=== PATIENT | female | born 1970 | race Hispanic/Latino ===

== ENCOUNTER 2017-05-03 13:13 | Emergency (ER) | payer SELFPAY | END 2017-05-03 14:20 | disposition left against medical advice (07) | LOC: ED 13:13 | DX: M54.9 Dorsalgia, unspecified (principal); Z53.21 Procedure and treatment not carried out due to patient leaving prior to being seen by health care provider ==

== ENCOUNTER 2017-07-06 15:16 | Emergency (ER) | payer SELFPAY ==
[2017-07-06 15:44] LABS: Basophils % (Auto) 0.2 % (0.0-1.8); Eosinophils % (Auto) 0.3 % (0.0-4.3); Hematocrit 42.2 % (30.3-42.9); Mean Corpuscular HGB Conc 36 % (30-34); Mean Corpuscular Hemoglobin 31 pg (28-32); Mean Corpuscular Volume 87 fl (79-97); Platelet Count 189 K/mm3 (140-440); Red Blood Count 4.85 M/mm3 (3.65-5.03); Red Cell Distribution Width 12.7 % (13.2-15.2); White Blood Count 8.7 K/mm3 (4.5-11.0)
[2017-07-06 16:05] LABS: Alanine Aminotransferase 10 units/L (7-56); Albumin 4.9 g/dL (3.9-5); Albumin/Globulin Ratio 1.5 %; Alkaline Phosphatase 111 units/L (35-129); Anion Gap 21 mmol/L; Blood Urea Nitrogen 14 mg/dL (7-17); Calcium 9.3 mg/dL (8.4-10.2); Carbon Dioxide 23 mmol/L (22-30); Chloride 101.4 mmol/L (98-107); Glucose 122 mg/dL (65-100); Lipase 28 units/L (13-60); Potassium 3.7 mmol/L (3.6-5.0); Sodium 142 mmol/L (137-145); Total Protein 8.2 g/dL (6.3-8.2)
[2017-07-06 17:39] LABS: Bilirubin,Urine NEG (Negative); Blood,Urine SM (Negative); Ketones,Urine NEG (Negative); Leukocyte Esterase,Urine NEG (Negative); Mucus,Urine 1+ /HPF; Nitrite,Urine NEG (Negative); Protein,Urine <15 mg/dL mg/dL (Negative); Urobilinogen,Urine < 2.0 mg/dL (<2.0)
[2017-07-06] MEDS ORDERED: PEPCID IV ONE (23:48)
[2017-07-06] MEDS ORDERED: ATIVAN IV ONE (23:48)
[2017-07-06] MEDS ORDERED: BENTYL IM ONE (23:48)
[2017-07-06] MEDS ORDERED: NACL 0.9% 1000 ML 1,000 ML IV ONE (23:48)
[2017-07-06] MEDS ORDERED: ALUM-MAG HYDROX-SIMETH 200-200-20MG/5ML PO ONE (23:48)
--- NOTE | 2017-07-06 23:49 | Emergency Department Report ---
ED General Adult HPI - General Chief complaint: Abdominal Pain Stated complaint: RIGHT FLANK PAIN Time Seen by Provider: 07/06/17 22:14 Source: patient, RN notes reviewed, old records reviewed Mode of arrival: Ambulatory Limitations: No Limitations - History of Present Illness Initial comments: This is a 47-year-old female. The patient is previously unknown to me. The patient does not currently have a primary care doctor, and endorses a history of cirrhosis. Patient presents to the ER with a complaint of right flank and right upper quadrant abdominal pain, that radiates to the back. The patient also describes abdominal pressure, bloating, "gas for 2 weeks", and decreased energy for 2 days. She denies irritative and obstructive urinary symptoms. She denies chest pain or shortness of breath. She also complains of headache for 2 months. The headache is not sudden or thunderclap in nature. It is not the worst headache of her life, and it has not reached maximal intensity within an hour. There is no leg pain. There is no leg swelling. No recent trips greater than 4 hours. No recent hospitalizations. The patient also endorses that she recently stepped on animal feces accidentally , and she is worried about "worms." As far she knows, her stools have not demonstrated any parasites. -: Gradual, week(s), month(s) Location: head, back, abdomen Quality: aching Consistency: intermittent Improves with: rest Worsens with: movement Associated Symptoms: loss of appetite, malaise, weakness. denies: confusion, chest pain, cough, diaphoresis - Related Data Previous Rx's Medication Instructions Recorded Last Taken Type Dicyclomine [Bentyl] 10 mg PO QID PRN #20 capsule 07/07/17 Unknown Rx Famotidine [Pepcid] 20 mg PO QDAY #30 tablet 07/07/17 Unknown Rx Ondansetron [Zofran Odt] 4 mg PO QID PRN #20 tab.rapdis 07/07/17 Unknown Rx Allergies Allergy/AdvReac Type Severity Reaction Status Date / Time tramadol HCl [From Ultram] Allergy Itching Verified 03/14/16 10:12 ED Review of Systems ROS: Stated complaint: RIGHT FLANK PAIN Other details as noted in HPI Constitutional: fever Eyes: denies: vision change ENT: denies: epistaxis Respiratory: denies: cough Cardiovascular: denies: chest pain Gastrointestinal: abdominal pain Genitourinary: denies: dysuria Musculoskeletal: back pain Skin: denies: lesions Neurological: weakness Psychiatric: anxiety ED Past Medical Hx - Past Medical History Previous Medical History?: Yes Additional medical history: hypoglycemia - Surgical History Past Surgical History?: Yes Hx Breast Surgery: Yes (tumor removed from left breast) Additional Surgical History: right hand surgery x 3. hysterectomy - Social History Smoking Status: Current Every Day Smoker - Medications Home Medications: Home Medications Medication Instructions Recorded Confirmed Last Taken Type Dicyclomine [Bentyl] 10 mg PO QID PRN #20 capsule 07/07/17 Unknown Rx Famotidine [Pepcid] 20 mg PO QDAY #30 tablet 07/07/17 Unknown Rx Ondansetron [Zofran Odt] 4 mg PO QID PRN #20 tab.rapdis 07/07/17 Unknown Rx ED Physical Exam - General Limitations: No Limitations General appearance: alert, anxious - Head Head exam: Present: atraumatic, normocephalic - Eye Eye exam: Present: normal appearance, PERRL, EOMI, other (visual acuity intact to finger counting, color perception, reading at a close distance). Absent: nystagmus - ENT ENT exam: Present: normal exam, normal orophraynx, mucous membranes moist, normal external ear exam - Neck Neck exam: Present: normal inspection, full ROM. Absent: tenderness, meningismus - Respiratory Respiratory exam: Present: normal lung sounds bilaterally. Absent: respiratory distress, wheezes, rales, rhonchi, stridor, chest wall tenderness, accessory muscle use, decreased breath sounds, prolonged expiratory - Cardiovascular Cardiovascular Exam: Present: regular rate, normal rhythm, normal heart sounds. Absent: bradycardia, tachycardia, irregular rhythm, systolic murmur, diastolic murmur, rubs, gallop - GI/Abdominal GI/Abdominal exam: Present: soft, tenderness (there is right flank tenderness, there is right upper quadrant tenderness. There is no rebound, guarding or peritoneal signs), normal bowel sounds. Absent: distended, guarding, rebound, rigid, pulsatile mass - Extremities Exam Extremities exam: Present: normal inspection, full ROM, normal capillary refill. Absent: tenderness, pedal edema, joint swelling, calf tenderness - Back Exam Back exam: Present: normal inspection, full ROM. Absent: tenderness, CVA tenderness (R), CVA tenderness (L), muscle spasm, paraspinal tenderness, vertebral tenderness - Neurological Exam Neurological exam: Present: alert, oriented X3, normal gait, other (Extraocular movements intact. Tongue midline. No facial droop. Facial sensation intact to light touch in the V1, V2, V3 distribution bilaterally. 5 and 5 strength in 4 extremities.. Sensation is intact to light touch in 4 extremities.). Absent : motor sensory deficit - Psychiatric Psychiatric exam: Present: anxious - Skin Skin exam: Present: warm, dry, intact, normal color. Absent: rash ED Course Vital Signs 07/06/17 07/06/17 07/06/17 15:23 20:41 20:50 Temperature 99.1 F Pulse Rate 116 H 100 H 100 H Respiratory 18 13 11 L Rate Blood Pressure 149/109 126/81 Blood Pressure [Right] O2 Sat by Pulse 99 100 99 Oximetry 07/06/17 07/06/17 07/06/17 21:00 21:10 21:20 Temperature Pulse Rate 84 108 H 109 H Respiratory 13 13 12 Rate Blood Pressure 126/81 126/81 145/84 Blood Pressure [Right] O2 Sat by Pulse 99 97 100 Oximetry 07/06/17 07/06/17 07/06/17 21:30 21:42 21:50 Temperature Pulse Rate 83 86 93 H Respiratory 13 16 12 Rate Blood Pressure 150/87 150/87 149/89 Blood Pressure [Right] O2 Sat by Pulse 100 98 100 Oximetry 07/06/17 07/06/17 07/06/17 22:00 22:10 22:20 Temperature Pulse Rate 90 96 H 87 Respiratory 9 L 11 L 19 Rate Blood Pressure 149/89 156/81 150/87 Blood Pressure [Right] O2 Sat by Pulse 99 99 91 Oximetry 07/06/17 07/06/17 07/06/17 22:30 22:40 22:50 Temperature Pulse Rate 94 H Respiratory 10 L Rate Blood Pressure 150/87 150/87 150/87 Blood Pressure [Right] O2 Sat by Pulse 100 98 98 Oximetry 07/06/17 07/06/17 07/06/17 23:00 23:10 23:20 Temperature Pulse Rate Respiratory Rate Blood Pressure 150/87 101/64 101/64 Blood Pressure [Right] O2 Sat by Pulse 98 96 98 Oximetry 07/06/17 07/06/1717 23:32 23:42 00:06 Temperature Pulse Rate Respiratory Rate Blood Pressure 101/64 101/64 101/64 Blood Pressure [Right] O2 Sat by Pulse 90 91 Oximetry 07/07/17 07/07/17 07/07/17 00:12 00:20 00:30 Temperature Pulse Rate 83 93 H 115 H Respiratory 14 14 16 Rate Blood Pressure 117/76 118/61 118/61 Blood Pressure [Right] O2 Sat by Pulse 97 98 98 Oximetry 07/07/17 07/07/17 07/07/17 00:40 00:50 00:57 Temperature Pulse Rate 99 H 92 H Respiratory 18 16 Rate Blood Pressure 66/30 118/69 Blood Pressure 118/69 [Right] O2 Sat by Pulse 94 Oximetry 07/07/17 01:14 Temperature Pulse Rate 83 Respiratory 14 Rate Blood Pressure 126/99 Blood Pressure [Right] O2 Sat by Pulse 98 Oximetry - Reevaluation(s) Reevaluation #1: 07/07/17 01:13 differential diagnosis: Pneumonia, kidney stone, cholecystitis, hepatitis, constipation Assessment and plan: 47-year-old female with right upper quadrant pain, right flank pain, minimally tender. Low risk by well's criteria, no pulmonary embolus or DVT risk factors, low risk by PAO score, low risk by heart score, patient is clinically sober at this time, however she is markedly anxious. She may have a component of narcotic seeking tendencies. She did endorse dissatisfaction that she was not given morphine which she specifically requested. She is treated with nonnarcotic pain medication. Her tachycardia has resolved. X-ray chest is negative. EKG nonspecific but given her multiple clinical complaints and history as well as physical, I think acute coronary syndrome is very unlikely. CT scan of the abdomen and pelvis is pending. Reevaluation #2: 07/07/17 02:24 tachycardia resolved. Tolerating liquid feeds. No distress. CT scan demonstrates no additional or require emergent surgical intervention. Adnexa is within normal limits. There is no pneumonia. The uterus is surgically absent. Nonspecific dilatation noted of the common bile duct, most likely the result of the patient's cholecystectomy in the distant past. Patient will be discharged with nonnarcotic pain medication, she can follow up with outpatient primary care and gastroenterology. ED Medical Decision Making - Lab Data Result diagrams: 07/06/17 15:30 07/06/17 15:30 Vital Signs 07/06/17 07/06/17 07/06/17 15:23 20:41 20:50 Temperature 99.1 F Pulse Rate 116 H 100 H 100 H Respiratory 18 13 11 L Rate Blood Pressure 149/109 126/81 Blood Pressure [Right] O2 Sat by Pulse 99 100 99 Oximetry 07/06/17 07/06/17 07/06/17 21:00 21:10 21:20 Temperature Pulse Rate 84 108 H 109 H Respiratory 13 13 12 Rate Blood Pressure 126/81 126/81 145/84 Blood Pressure [Right] O2 Sat by Pulse 99 97 100 Oximetry 07/06/17 07/06/17 07/06/17 21:30 21:42 21:50 Temperature Pulse Rate 83 86 93 H Respiratory 13 16 12 Rate Blood Pressure 150/87 150/87 149/89 Blood Pressure [Right] O2 Sat by Pulse 100 98 100 Oximetry 07/06/17 07/06/17 07/06/17 22:00 22:10 22:20 Temperature Pulse Rate 90 96 H 87 Respiratory 9 L 11 L 19 Rate Blood Pressure 149/89 156/81 150/87 Blood Pressure [Right] O2 Sat by Pulse 99 99 91 Oximetry 07/06/17 07/06/17 07/06/17 22:30 22:40 22:50 Temperature Pulse Rate 94 H Respiratory 10 L Rate Blood Pressure 150/87 150/87 150/87 Blood Pressure [Right] O2 Sat by Pulse 100 98 98 Oximetry 07/06/17 07/06/17 07/06/17 23:00 23:10 23:20 Temperature Pulse Rate Respiratory Rate Blood Pressure 150/87 101/64 101/64 Blood Pressure [Right] O2 Sat by Pulse 98 96 98 Oximetry 07/06/17 07/06/17 07/07/17 23:32 23:42 00:06 Temperature Pulse Rate Respiratory Rate Blood Pressure 101/64 101/64 101/64 Blood Pressure [Right] O2 Sat by Pulse 90 91 Oximetry 07/07/17 07/07/17 00:12 00:57 Temperature Pulse Rate 83 Respiratory 14 Rate Blood Pressure 117/76 Blood Pressure 118/69 [Right] O2 Sat by Pulse 97 Oximetry Labs 07/06/17 07/06/17 07/06/17 15:30 15:30 17:22 WBC 8.7 RBC 4.85 Hgb 15.0 H Hct 42.2 MCV 87 MCH 31 MCHC 36 H RDW 12.7 L Plt Count 189 Lymph % (Auto) 25.0 Barry % (Auto) 5.3 Eos % (Auto) 0.3 Baso % (Auto) 0.2 Lymph # 2.2 Barry # 0.5 Eos # 0.0 Baso # 0.0 Seg Neutrophils % 69.2 Seg Neutrophils # 6.0 Sodium 142 Potassium 3.7 Chloride 101.4 Carbon Dioxide 23 Anion Gap 21 BUN 14 Creatinine 0.8 Estimated GFR > 60 BUN/Creatinine Ratio 17.50 Glucose 122 H Calcium 9.3 Total Bilirubin 0.40 AST 15 ALT 10 Alkaline Phosphatase 111 Total Protein 8.2 Albumin 4.9 Albumin/Globulin Ratio 1.5 Lipase 28 Urine Color Yellow Urine Turbidity Clear Urine pH 5.0 Ur Specific [place] 1.023 Urine Protein <15 mg/dl Urine Glucose (UA) Neg Urine Ketones Neg Urine Blood Sm Urine Nitrite Neg Urine Bilirubin Neg Urine Urobilinogen < 2.0 Ur Leukocyte Esterase Neg Urine WBC (Auto) 2.0 Urine RBC (Auto) 6.0 U Epithel Cells (Auto) 1.0 Urine Mucus 1+ - EKG Data -: EKG Interpreted by Me - EKG Data 07/07/17 01:12 EKG limited by motion artifact. Normal sinus, 94 bpm, normal axis, poor R-wave progression, H Osborne enlargement, abnormal EKG, not morphologically consistent with STEMI - Radiology Data Radiology results: pending, report reviewed, image reviewed interpreted by me: X-ray of the chest is negative for acute disease Critical care attestation.: If time is entered above; I have spent that time in minutes in the direct care of this critically ill patient, excluding procedure time. ED Disposition Clinical Impression: Abdominal pain Disposition: DC-01 TO HOME OR SELFCARE Is pt being admited?: No Does the pt Need Aspirin: No Condition: Stable Instructions: Abdominal Pain (ED) Additional Instructions: Take the pain medication, nausea medication as directed. Follow up with a primary care doctor or trademark paralegal within the next 7-[address] Warren is a local primary care doctor. Dr. Horton is a local trademark paralegal. [facility] has a patient service hotline was Recontacted to facilitate and expedite outpatient follow-up appointments. you may contact them at the following phone number: [phone] ([phone]) Please return to the ER right away with new pain, worsened pain, migration of pain, fevers, chills, chest pain, shortness of breath, intractable nausea or vomiting, inability to tolerate liquid feeds. Referrals: PRIMARY CAREMD [Primary Care Provider] - 3-5 Days KHALIDA WARREN MD [Staff Physician] - 3-5 Days SUMIT QUINTERO MD [Staff Physician] - 3-5 Days
[2017-07-06] MEDS ORDERED: NACL ONE (23:50)
--- NOTE | 2017-07-07 02:02 | Cat Scan Report ---
FINAL REPORT EXAM: CT ABDOMEN PELVIS W CON HISTORY: ruq pain radiates to back COMPARISON: None available. TECHNIQUE: Contiguous axial images were obtained. Additional sagittal and coronal reformatted images were obtained. Administration of IV contrast given per institution protocol. Images submitted for interpretation. FINDINGS: Atelectasis at the lung bases. There is respiratory motion artifact throughout the exam. This somewhat limits evaluation. Gallbladder surgically absent. The common bile duct measures 8 millimeters at the eddie hepatis and tapers to 5 millimeters at the pancreatic head. No obstructive lesion identified along the course the common bile duct. This may relate to patient's post cholecystectomy state. Mild fatty infiltration of the liver. Spleen and pancreas are unremarkable. No adrenal mass. No solid renal lesion. 1.7 centimeter left renal cyst. Aorta and IVC normal in caliber. Mild calcification of the aorta. Urinary bladder is grossly unremarkable. Uterus is surgically absent. No free fluid or lymphadenopathy in the pelvic cavity. The appendix is normal in caliber measuring 5 millimeters. Large and small bowel loops normal in caliber. Lumbar vertebral body heights are preserved. Bony pelvis is grossly intact. Mild IMPRESSION: Dilatation the common bile duct which may relate to patient's post cholecystectomy state. Correlation with bilirubin suggested. Very mild fatty infiltration of the liver. No other acute findings. Large and small bowel loops normal in caliber. The appendix is normal in caliber.
[2017-07-07 02:50] VITALS: BP 102/66
--- NOTE | 2017-07-07 08:24 | XRay Report ---
CHEST 2 VIEWS INDICATION: Upper back pain. Chest pain for one week. COMPARISON: None similar at this institution. FINDINGS: PA and lateral chest radiographs demonstrate normal cardiomediastinal silhouette. Clear, hyperinflated lungs. Mild mid thoracic spine degenerative spurring and lower thoracic levoscoliosis. CONCLUSION: No acute disease in the chest. COPD. Thank you for the opportunity to participate in this patient's care.
== END 2017-07-07 03:00 | disposition home or self-care (01) ==
LOC: ED 15:16
DX: R10.30 Lower abdominal pain, unspecified (principal); F17.200 Nicotine dependence, unspecified, uncomplicated
CPT/HCPCS: 36415; 71020; 74177; 80053; 81001; 83690; 85025; 93005; 93010; 96361; 96372; 96374; 96375; 99284; J0500; J2060; J7030; Q9967

== ENCOUNTER 2018-04-13 14:26 | Emergency (ER) | payer SELFPAY ==
[2018-04-13 15:42] LABS: Basophils % (Auto) 0.3 % (0.0-1.8); Eosinophils % (Auto) 0.6 % (0.0-4.3); Hematocrit 36.5 % (30.3-42.9); Hemoglobin 12.8 gm/dl (10.1-14.3); Lymphocytes # (Auto) 1.9 K/mm3 (1.2-5.4); Lymphocytes % (Auto) 30.5 % (13.4-35.0); Mean Corpuscular HGB Conc 35 % (30-34); Mean Corpuscular Hemoglobin 30 pg (28-32); Mean Corpuscular Volume 87 fl (79-97); Monocytes # (Auto) 0.3 K/mm3 (0.0-0.8); Monocytes % (Auto) 5.2 % (0.0-7.3); Platelet Count 154 K/mm3 (140-440); Red Blood Count 4.22 M/mm3 (3.65-5.03); Red Cell Distribution Width 13.1 % (13.2-15.2)
[2018-04-13 16:02] LABS: Alanine Aminotransferase 11 units/L (7-56); Albumin 3.8 g/dL (3.9-5); BUN/Creatinine Ratio 32; Blood Urea Nitrogen 16 mg/dL (7-17); Calcium 8.5 mg/dL (8.4-10.2); Hemolysis Index 12
--- NOTE | 2018-04-13 17:19 | Emergency Department Report ---
ED General Adult HPI - General Chief complaint: Headache Stated complaint: WORMS Time Seen by Provider: 04/13/18 17:08 Source: patient, RN notes reviewed, old records reviewed Mode of arrival: Ambulatory Limitations: No Limitations - History of Present Illness Initial comments: This is a 47-year-old female whom I have evaluated in the past. Please see my note from June 2017. The patient presents to the ER with multiple complaints today. Her first complaint is midline gingival swelling and pain, for the past few days. Her next complaint is left-sided maxillary headache, present for 2 weeks. The headache is not sudden or thunderclap in nature. It has been present on and off for years. The headache is not sudden or thunderclap in nature. It does not reach maximal intensity within an hour. The patient's next complaint is passing worms from her stool. This has been an intermittent complaints since June 2017. Patient indicates no recent travel, no recent undercooked food. She denies neck pain, neck stiffness, currently denies abdominal pain, nausea and vomiting, and she also indicates no urinary symptoms. Her symptoms do not have exacerbating or relieving factors, with the exception of her left gingival tenderness which increases with palpation. It does not radiate anywhere. The left maxillary sinus headache increases with palpation over the left maxillary sinus. -: Gradual Location: head, face Quality: other (as per history of present illness) Consistency: other ( as per history of present illness) Improves with: other (as per history of present illness) Worsens with: other (as per history of present illness) Associated Symptoms: denies other symptoms, headaches, other (as per history of present illness). denies: confusion, chest pain, cough, diaphoresis, fever/ chills, loss of appetite, malaise, nausea/vomiting, rash, seizure, shortness of breath, syncope, weakness - Related Data Previous Rx's Medication Instructions Recorded Last Taken Type Albendazole (Nf) [Albenza (Nf)] 400 mg PO BID #14 tablet 04/13/18 Unknown Rx Chlorhexidine Gluconate [Paroex] 473 ml MM BID #1 mouthwash 04/13/18 Unknown Rx Ibuprofen [Motrin] 600 mg PO Q8H PRN #30 tablet 04/13/18 Unknown Rx Metoclopramide [Reglan] 10 mg PO QID PRN #30 tab 04/13/18 Unknown Rx Penicillin V Potassium 500 mg PO QID #20 tablet 04/13/18 Unknown Rx Allergies Allergy/AdvReac Type Severity Reaction Status Date / Time tramadol HCl [From [facility]] Allergy Itching Verified 09/24/17 14:55 ED Review of Systems ROS: Stated complaint: WORMS Other details as noted in HPI Comment: All other systems reviewed and negative ED Past Medical Hx - Past Medical History Previous Medical History?: No Additional medical history: hypoglycemia - Surgical History Past Surgical History?: No Hx Breast Surgery: Yes (tumor removed from left breast) Additional Surgical History: right hand surgery x 3. hysterectomy - Social History Smoking Status: Current Every Day Smoker Substance Use Type: None - Medications Home Medications: Home Medications Medication Instructions Recorded Confirmed Last Taken Type Albendazole (Nf) [Albenza (Nf)] 400 mg PO BID #14 tablet 04/13/18 Unknown Rx Chlorhexidine Gluconate [Paroex] 473 ml MM BID #1 mouthwash 04/13/18 Unknown Rx Ibuprofen [Motrin] 600 mg PO Q8H PRN #30 tablet 04/13/18 Unknown Rx Metoclopramide [Reglan] 10 mg PO QID PRN #30 tab 04/13/18 Unknown Rx Penicillin V Potassium 500 mg PO QID #20 tablet 04/13/18 Unknown Rx ED Physical Exam - General Limitations: No Limitations General appearance: alert, in no apparent distress - Head Head exam: Present: atraumatic, normocephalic - Eye Eye exam: Present: normal appearance (no visual field cuts on direct confrontation), PERRL, EOMI, other (visual acuity intact to finger counting, color perception, reading at a close distance). Absent: nystagmus - ENT ENT exam: Present: normal exam, normal orophraynx (there is a 0.5 cm gingival abscess over tooth #8 there is no trismus, stridor, malocclusion. There is left -sided maxillary sinus tenderness..), mucous membranes moist, normal external ear exam - Neck Neck exam: Present: normal inspection, full ROM. Absent: tenderness, lymphadenopathy - Respiratory Respiratory exam: Present: normal lung sounds bilaterally. Absent: respiratory distress - Cardiovascular Cardiovascular Exam: Present: regular rate, normal rhythm, normal heart sounds. Absent: bradycardia, tachycardia, irregular rhythm, systolic murmur, diastolic murmur, rubs, gallop - GI/Abdominal GI/Abdominal exam: Present: soft, normal bowel sounds. Absent: distended, tenderness, guarding, rebound, rigid, pulsatile mass - Extremities Exam Extremities exam: Present: normal inspection, full ROM, normal capillary refill. Absent: pedal edema, joint swelling, calf tenderness - Back Exam Back exam: Present: normal inspection, full ROM. Absent: tenderness, CVA tenderness (R), paraspinal tenderness, vertebral tenderness - Neurological Exam Neurological exam: Present: alert, oriented X3, CN II-XII intact, normal gait, other (Extraocular movements intact. Tongue midline. No facial droop. Facial sensation intact to light touch in the V1, V2, V3 distribution bilaterally. 5 and 5 strength in 4 extremities.. Sensation is intact to light touch in 4 extremities.). Absent: motor sensory deficit - Psychiatric Psychiatric exam: Present: normal affect, normal mood - Skin Skin exam: Present: warm, dry, intact, normal color. Absent: rash ED Course Vital Signs 04/13/18 04/13/18 04/13/18 14:47 17:32 17:35 Temperature 98.5 F Pulse Rate 77 69 Respiratory 16 14 14 Rate Blood Pressure 126/71 Blood Pressure 148/72 [Left] O2 Sat by Pulse 100 98 98 Oximetry 04/13/18 19:10 Temperature Pulse Rate 71 Respiratory 13 Rate Blood Pressure Blood Pressure 134/77 [Left] O2 Sat by Pulse 99 Oximetry - Reevaluation(s) Reevaluation #1: 04/13/18 19:27 Patient feels improved. Tolerating oral feeds. Patient will be discharged at this time. ED Medical Decision Making - Lab Data Result diagrams: 04/13/18 15:19 04/13/18 15:19 Vital Signs 04/13/18 04/13/18 04/13/18 14:47 17:32 17:35 Temperature 98.5 F Pulse Rate 77 69 Respiratory 16 14 14 Rate Blood Pressure 126/71 Blood Pressure 148/72 [Left] O2 Sat by Pulse 100 98 98 Oximetry Lab Results 04/13/18 04/13/18 Range/Units 15:19 15:19 WBC 6.1 (4.5-11.0) K/mm3 RBC 4.22 (3.65-5.03) M/mm3 Hgb 12.8 (10.1-14.3) gm/dl Hct 36.5 (30.3-42.9) % MCV 87 (79-97) fl MCH 30 (28-32) pg MCHC 35 H (30-34) % RDW 13.1 L (13.2-15.2) % Plt Count 154 (140-440) K/mm3 Lymph % (Auto) 30.5 (13.4-35.0) % [place] % (Auto) 5.2 (0.0-7.3) % Eos % (Auto) 0.6 (0.0-4.3) % Baso % (Auto) 0.3 (0.0-1.8) % Lymph # 1.9 (1.2-5.4) K/mm3 [place] # 0.3 (0.0-0.8) K/mm3 Eos # 0.0 (0.0-0.4) K/mm3 Baso # 0.0 (0.0-0.1) K/mm3 Seg Neutrophils % 63.4 (40.0-70.0) % Seg Neutrophils # 3.9 (1.8-7.7) K/mm3 Sodium 143 (137-145) mmol/L Potassium 4.0 (3.6-5.0) mmol/L Chloride 103.6 (98-107) mmol/L Carbon Dioxide 28 (22-30) mmol/L Anion Gap 15 mmol/L BUN 16 (7-17) mg/dL Creatinine 0.5 L (0.7-1.2) mg/dL Estimated GFR > 60 ml/min BUN/Creatinine Ratio 32 % Glucose 98 (65-100) mg/dL Calcium 8.5 (8.4-10.2) mg/dL Total Bilirubin < 0.20 (0.1-1.2) mg/dL AST 16 (5-40) units/L ALT 11 (7-56) units/L Alkaline Phosphatase 114 (35-129) units/L Total Protein 6.5 (6.3-8.2) g/dL Albumin 3.8 L (3.9-5) g/dL Albumin/Globulin Ratio 1.4 % - Radiology Data Radiology results: report reviewed, image reviewed Noncontrast CT scan of the brain is negative for acute disease - Medical Decision Making Differential diagnosis, including but not limited to: Gingival abscess, maxillary sinusitis, undifferentiated parasite/warm Assessment and plan: 47-year-old female with multiple repeat complaints, including headache which I have previously evaluated her for, and sensation of worms or parasites. In terms of the patient's complaint of headache, she has a GCS of 15, with an NIH score of 0, a noncontrast CT scan of the brain, and her headache is not historically consistent with ischemic or hemorrhagic stroke, not consistent with subarachnoid hemorrhage, and her exam and history are not consistent with meningitis. She will be treated with Toradol, Reglan and Benadryl. While in the ER, after my initial evaluation, the patient dorsal nausea and vomiting. Therefore, she will be given the aforementioned Reglan, Benadryl. Laboratory studies were unremarkable. The case was discussed with infectious disease specialist on-call, Dr. Handy. She recommended albendazole, 400 mg twice daily for 7 days, stool ova and parasites which were sent prior to my arrival, and the patient will be counseled to follow-up with outpatient infectious disease within the next 10 days for further evaluation. Critical care attestation.: If time is entered above; I have spent that time in minutes in the direct care of this critically ill patient, excluding procedure time. ED Disposition Clinical Impression: Hx of worms, Gum abscess Disposition: [id number] TO HOME OR SELFCARE Is pt being admited?: No Does the pt Need Aspirin: No Condition: Good Instructions: Gingivitis (ED) Additional Instructions: Cultures were sent today, was also be available in the next 3-5 days. Follow up with the infectious disease specialist, Dr. Handy, within the next 7-10 days. you should follow up with a specialist for evaluation of the worms. Take the pain medication, nausea medication as needed/directed. Follow-up with the dentist within the next week for your gingival abscess. Take the antibiotics, chlorhexidine mouthwash as directed. Follow-up with a primary care doctor within the next month. Return to the ER right away with new pain, worsened pain, migration of pain, fevers, chills, lethargy, irritability, projectile vomiting, change in mental status, confusion , inability to tolerate liquid feeds. Prescriptions: Albendazole (Nf) [Albenza (Nf)] 400 mg PO BID #14 tablet Chlorhexidine Gluconate [Paroex] 473 ml MM BID #1 mouthwash Ibuprofen [Motrin] 600 mg PO Q8H PRN #30 tablet PRN Reason: Pain Metoclopramide [Reglan] 10 mg PO QID PRN #30 tab PRN Reason: Nausea Penicillin V Potassium 500 mg PO QID #20 tablet Referrals: PRIMARY CAREMD [Primary Care Provider] - 3-5 Days MARQUES VELASQUEZ MD [Staff Physician] - 3-5 Days [facility] [Outside] - 3-5 Days [facility] [Provider Group] - 3-5 Days
--- NOTE | 2018-04-13 17:40 | Cat Scan Report ---
FINAL REPORT EXAM: CT HEAD/BRAIN WO CON HISTORY: Severe Headache. Worms in stool. TECHNIQUE: Standard unenhanced CT of the head at 5.0 millimeter axial increments. PRIORS: None. FINDINGS: The ventricular system is normal in size and configuration. There is no evidence for parenchymal volume loss. Pineal gland calcification is noted. There is no evidence for mass lesion, mass effect, midline shift, acute intracranial hemorrhage, or acute ischemia/ infarction. No evidence for acute skull fracture is seen. No abnormality in the overlying scalp soft tissues is seen. Visualized paranasal sinuses are clear. IMPRESSION: Negative CT of the head. No acute intracranial process noted. Given the history of worms in stool, MRI may be of further help.
[2018-04-13] MEDS ORDERED: TORADOL IM ONE (17:55)
[2018-04-13] MEDS ORDERED: REGLAN IV ONE (18:36)
[2018-04-13] MEDS ORDERED: BENADRYL IV ONE (18:36)
[2018-04-13 19:11] VITALS: BP 134/77
== END 2018-04-13 19:34 | disposition home or self-care (01) ==
LOC: ED 14:26
DX: K05.219 Aggressive periodontitis, localized, unspecified severity (principal); B83.9 Helminthiasis, unspecified
CPT/HCPCS: 36415; 70450; 80053; 85025; 96372; 96374; 96375; 99284; J1200; J1885; J2765

== ENCOUNTER 2018-07-13 14:32 | Emergency (ER) | payer SELFPAY ==
[2018-07-13 15:42] LABS: Bacteria,Urine 1+ /HPF (Negative); Bilirubin,Urine NEG (Negative); Blood,Urine NEG (Negative); Color,Urine Amber (Yellow); Hyaline Casts,Urine 1 /LPF; Mucus,Urine 3+ /HPF
[2018-07-13] MEDS ORDERED: TORADOL IM ONE (16:25)
--- NOTE | 2018-07-13 16:27 | Emergency Department Report ---
ED Back Pain/Injury HPI - General Chief Complaint: Back Pain/Injury Stated Complaint: RIGHT SIDE PAIN/FRYE WHEN URINE Time Seen by Provider: 07/13/18 15:35 Source: patient Mode of arrival: Ambulatory Limitations: No Limitations - History of Present Illness Initial Comments: This is a 48-year-old female who presents to low back pain and dysuria for 3 days. Patient states symptoms originally started 6 days ago with frequency and urgency. Patient states she awakened out of sleep onset Restoril 3-4 times during the night and quite frequently to one a day. Patient states she feel as if she cannot empty her bladder with pelvic pressure and right flank pain causing nausea. Patient states she does have a past medical history of kidney stones and unsure of reoccurrence. Patient denies vomiting, fever, chest pain, vaginal bleeding or discharge. MD Complaint: back pain Onset/Timin -: days(s) Similar Symptoms Previously: No Place: home Radiation: none Severity: moderate Severity scale (0 -10): 10 Quality: burning, stabbing Consistency: intermittent Improves With: none Worsens With: none Context: unknown Associated Symptoms: nausea/vomiting. denies: confusion, weakness, chest pain, numbness, difficulty walking, cough, difficulty urinating, diaphoresis, incontinence, fever/chills, constipation, headaches, abdominal pain, loss of appetite, malaise, rash, seizure, shortness of breath, syncope - Related Data Previous Rx's Medication Instructions Recorded Last Taken Type Albendazole (Nf) [Albenza (Nf)] 400 mg PO BID #14 tablet 04/13/18 Unknown Rx Chlorhexidine Gluconate [Paroex] 473 ml MM BID #1 mouthwash 04/13/18 Unknown Rx Ibuprofen [Motrin] 600 mg PO Q8H PRN #30 tablet 04/13/18 Unknown Rx Metoclopramide [Reglan] 10 mg PO QID PRN #30 tab 04/13/18 Unknown Rx Penicillin V Potassium 500 mg PO QID #20 tablet 04/13/18 Unknown Rx Phenazopyridine [Pyridium] 200 mg PO TID #6 tab 07/13/18 Unknown Rx Sulfamethoxazole/Trimethoprim 1 each PO BID #6 tablet 07/13/18 Unknown Rx [Bactrim DS TAB] Allergies Allergy/AdvReac Type Severity Reaction Status Date / Time tramadol HCl [From [facility]] Allergy Itching Verified 09/24/17 14:55 ED Review of Systems ROS: Stated complaint: RIGHT SIDE PAIN/FRYE WHEN URINE Other details as noted in HPI Constitutional: denies: chills, fever Respiratory: denies: cough, shortness of breath, wheezing Cardiovascular: denies: chest pain, palpitations Gastrointestinal: nausea. denies: abdominal pain, vomiting, diarrhea Genitourinary: urgency, dysuria, frequency. denies: discharge Musculoskeletal: back pain (low back pain). denies: joint swelling, arthralgia Skin: denies: rash, lesions Neurological: denies: headache, weakness, paresthesias Psychiatric: denies: anxiety, depression ED Past Medical Hx - Past Medical History hypoglycemia ED Back Pain Physical Exam - Exam General: Vital signs noted. No distress. Alert and acting appropriately. Back/Abdomen: Yes Flank Tenderness (right flank tenderness), No Abdominal Tenderness (suprapubic tenderness), No Perithoracic Tenderness, No Perilumbar Tenderness, No Sacroiliac Tenderness, No Straight Leg Raise Pain Neuro: Yes Normal Sensation, Yes Normal DTR's, Yes Normal Gait, No Motor Weakness ED Course Vital Signs 07/13/18 14:47 Temperature 98.2 F Pulse Rate 90 Respiratory 20 Rate Blood Pressure 137/89 O2 Sat by Pulse 98 Oximetry ED Medical Decision Making - Lab Data Lab Results 07/13/18 Range/Units 15:20 Urine Color Colette (Yellow) Urine Turbidity Slightly-cloudy (Clear) Urine pH 5.0 (5.0-7.0) Ur Specific Pana 1.031 H (1.003-1.030) Urine Protein 30 mg/dl (Negative) mg/dL Urine Glucose (UA) Neg (Negative) mg/dL Urine Ketones Tr (Negative) mg/dL Urine Blood Neg (Negative) Urine Nitrite Pos (Negative) Urine Bilirubin Neg (Negative) Urine Urobilinogen 4.0 (<2.0) mg/dL Ur Leukocyte Esterase Neg (Negative) Urine WBC (Auto) 9.0 H (0.0-6.0) /HPF Urine RBC (Auto) 3.0 (0.0-6.0) /HPF U Epithel Cells (Auto) 1.0 (0-13.0) /HPF Urine Bacteria (Auto) 1+ (Negative) /HPF Hyaline Casts 1 /LPF Urine Mucus 3+ /HPF - Medical Decision Making Patient is stable and was examined by me in fast track. Vitals stable. Obtained labs and US of abdomen. US negative for acute findings. Patient given tramadol 50 mg by mouth once while in the ER. Start Bactrim DS and Pyridium for acute cystitis. Discussed plan with patient and agreed to plan. Discharged home in stable condition. Follow up with PCP in 2-3 days. Critical care attestation.: If time is entered above; I have spent that time in minutes in the direct care of this critically ill patient, excluding procedure time. ED Disposition Clinical Impression: Dysuria, Right flank pain Acute cystitis Qualifiers: Hematuria presence: without hematuria Qualified Code(s): N30.00 - Acute cystitis without hematuria Disposition: TO HOME OR SELFCARE Is pt being admited?: No Does the pt Need Aspirin: No Condition: Stable Instructions: Urinary Tract Infection in Women (ED) Additional Instructions: Increase fluid intake to 2 L per day. Complete full course of antibiotics as prescribed. Avoid drinking alcohol while taking antibiotics and for 24 hours after completion. Follow-up with primary care doctor in 2-3 days. Prescriptions: Phenazopyridine [Pyridium] 200 mg PO TID #6 tab Sulfamethoxazole/Trimethoprim [Bactrim DS TAB] 1 each PO BID #6 tablet Referrals: [facility] [Outside] - 3-5 Days [facility] [Outside] - 3-5 Days [facility] [Outside] - 3-5 Days Time of Disposition: 18:47 Print Language: TAMAZIGHT
--- NOTE | 2018-07-13 18:25 | Ultrasound Report ---
FINAL REPORT EXAM: US RENAL BILAT HISTORY: right flank pain TECHNIQUE: Grayscale and color-flow imaging of the kidneys and urinary bladder was performed. Comparison: CT abdomen and pelvis dated July 07, 2017 FINDINGS: Right kidney: Measures 9.9 centimeters by 5.2 centimeters x 6.5 centimeters. There is no demonstration of hydronephrosis, renal calculi or renal mass. Left kidney: Measures 10.7 centimeters by 4.5 centimeters x 5.7 centimeters. Urinary bladder: Mildly distended and unremarkable in appearance. IMPRESSION: 1. No evidence of hydronephrosis, renal calculi or renal mass of either kidney.
[2018-07-13 19:10] VITALS: BP 136/72
== END 2018-07-13 19:08 | disposition home or self-care (01) ==
LOC: ED 14:32
DX: N30.00 Acute cystitis without hematuria (principal); Z88.6 Allergy status to analgesic agent; E16.2 Hypoglycemia, unspecified
CPT/HCPCS: 76770; 81001; 99284; J1885

== ENCOUNTER 2018-12-20 18:34 | Emergency (ER) | payer SELFPAY ==
[2018-12-20 18:53] VITALS: BP 168/98
[2018-12-20] MEDS ORDERED: NACL 0.9% 1000 ML 1,000 ML IV ONE (18:53)
[2018-12-20 19:28] LABS: Basophils % (Auto) 0.5 % (0.0-1.8); Eosinophils % (Auto) 0.7 % (0.0-4.3); Hematocrit 41.1 % (30.3-42.9); Hemoglobin 14.1 gm/dl (10.1-14.3); Lymphocytes % (Auto) 38.7 % (13.4-35.0); Mean Corpuscular HGB Conc 34 % (30-34); Mean Corpuscular Volume 87 fl (79-97); Monocytes # (Auto) 0.3 K/mm3 (0.0-0.8); Monocytes % (Auto) 5.8 % (0.0-7.3); Platelet Count 199 K/mm3 (140-440); Red Blood Count 4.71 M/mm3 (3.65-5.03); Red Cell Distribution Width 12.9 % (13.2-15.2)
[2018-12-20 19:54] LABS: Alanine Aminotransferase 12 units/L (7-56); Albumin 4.5 g/dL (3.9-5); BUN/Creatinine Ratio 20; Blood Urea Nitrogen 18 mg/dL (7-17); Calcium 9.6 mg/dL (8.4-10.2); Hemolysis Index 13
[2018-12-20 20:12] LABS: Bacteria,Urine 1+ /HPF (Negative); Bilirubin,Urine NEG (Negative); Blood,Urine SM (Negative); Color,Urine Yellow (Yellow); Mucus,Urine FEW /HPF; Protein,Urine <15 mg/dL mg/dL (Negative); Urobilinogen,Urine < 2.0 mg/dL (<2.0)
== END 2018-12-20 20:22 | disposition left against medical advice (07) ==
LOC: ED 18:34
DX: R10.9 Unspecified abdominal pain (principal); Z53.21 Procedure and treatment not carried out due to patient leaving prior to being seen by health care provider
CPT/HCPCS: 36415; 80053; 81001; 85025

== ENCOUNTER 2019-06-13 13:40 | Emergency (ER) | payer SELFPAY ==
[2019-06-13 13:49] VITALS: BP 131/86
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
== END 2019-06-13 19:49 | disposition left against medical advice (07) ==
LOC: ED 13:40
DX: M79.672 Pain in left foot (principal); Z53.21 Procedure and treatment not carried out due to patient leaving prior to being seen by health care provider

== ENCOUNTER 2019-07-17 19:11 | Emergency (ER) | payer SELFPAY ==
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
[2019-07-17 22:29] VITALS: BP 116/80
[2019-07-17] MEDS ORDERED: NORCO 5/325 PO ONE (22:29)
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
[2019-07-17 22:48] LABS: Basophils % (Auto) 0.4 % (0.0-1.8); Eosinophils # (Auto) 0.1 K/mm3 (0.0-0.4); Eosinophils % (Auto) 0.7 % (0.0-4.3); Hematocrit 42.5 % (30.3-42.9); Hemoglobin 15.1 gm/dl (10.1-14.3); Lymphocytes # (Auto) 2.7 K/mm3 (1.2-5.4); Lymphocytes % (Auto) 27.7 % (13.4-35.0); Mean Corpuscular HGB Conc 35 % (30-34); Mean Corpuscular Volume 90 fl (79-97); Monocytes # (Auto) 0.5 K/mm3 (0.0-0.8); Monocytes % (Auto) 5.2 % (0.0-7.3); Platelet Count 218 K/mm3 (140-440); Red Blood Count 4.73 M/mm3 (3.65-5.03)
[2019-07-17 23:15] LABS: Alanine Aminotransferase 12 units/L (7-56); Albumin 4.5 g/dL (3.9-5); BUN/Creatinine Ratio 21; Blood Urea Nitrogen 15 mg/dL (7-17); Calcium 9.3 mg/dL (8.4-10.2); Hemolysis Index 37
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
[2019-07-18] MEDS ORDERED: FLEXERIL PO ONE (00:23)
[2019-07-18 00:52] LABS: Bilirubin,Urine NEG (Negative); Blood,Urine NEG (Negative); Color,Urine Yellow (Yellow); Mucus,Urine 2+ /HPF; Protein,Urine <15 mg/dL mg/dL (Negative); Urobilinogen,Urine < 2.0 mg/dL (<2.0)
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
--- NOTE | 2019-07-18 01:16 | Cat Scan Report ---
CT cervical spine wo con INDICATION: trama. TECHNIQUE: All CT scans at this location are performed using the following dose modulation technique: Automated exposure control. CONTRAST: None. COMPARISON: None available. FINDINGS: Satisfactory alignment without vertebral compression or significant degenerative disc disea se. Facet DJD is greatest at C2-3 on the right. IMPRESSION: Negative for bony or soft tissue injury. Signer Name: Wes Davis MD Signed: 07/18/2019 1:12 AM Workstation Name: [email or web address]
== END 2019-07-18 02:21 | disposition home or self-care (01) ==
LOC: ED 19:11
DX: S09.90XA Unspecified injury of head, initial encounter (principal); S36.30XA Unspecified injury of stomach, initial encounter; F17.200 Nicotine dependence, unspecified, uncomplicated; Z90.49 Acquired absence of other specified parts of digestive tract; Z90.710 Acquired absence of both cervix and uterus; Z98.890 Other specified postprocedural states; Z79.899 Other long term (current) drug therapy; Z88.6 Allergy status to analgesic agent; Y04.2XXA Assault by strike against or bumped into by another person, initial encounter; Y93.89 Activity, other specified; Y92.89 Other specified places as the place of occurrence of the external cause; Y99.8 Other external cause status
CPT/HCPCS: 36415; 70450; 70486; 72125; 74177; 80053; 81001; 85025; 99284; Q9967

== ENCOUNTER 2020-09-02 12:44 | Emergency (ER) | payer SELFPAY ==
[2020-09-02 13:07] VITALS: BP 148/87
--- NOTE | 2020-09-02 16:14 | Emergency Department Report ---
ED General Adult HPI - General Chief complaint: Urogenital-Female Stated complaint: CP/ABD PAIN Time Seen by Provider: 09/02/20 16:02 Source: patient Mode of arrival: Ambulatory Limitations: No Limitations - History of Present Illness Initial comments: 50-year-old female presents emergency department complaining of pain to her right wrist which is been off and on for the past several days. States she was seen here a few months ago she was incarcerated for this breast issue and and obtained a mammogram but was not told the results. Since that time has been increasingly worried of of this continue pain the cancer reports no night sweats reports no nipple discharge reports no direct trauma reports no fever, chills, sweats no weight loss. She does admit to smoking but reports no other risk factors of past family history. She also presents with Medicare papers to receive insurance requesting refill out the documentation. 50-year-old F Improves with: none Worsens with: movement Associated Symptoms: denies: confusion, chest pain, cough, loss of appetite, malaise, nausea/vomiting, shortness of breath, syncope, weakness Treatments Prior to Arrival: none - Related Data Previous Rx's Medication Instructions Recorded Last Taken Type Albendazole (Nf) [Albenza (Nf)] 400 mg PO BID #14 tablet 04/13/18 Unknown Rx Chlorhexidine Gluconate [Paroex] 473 ml MM BID #1 mouthwash 04/13/18 Unknown Rx Ibuprofen [Motrin] 600 mg PO Q8H PRN #30 tablet 04/13/18 Unknown Rx Metoclopramide [Reglan] 10 mg PO QID PRN #30 tab 04/13/18 Unknown Rx Penicillin V Potassium 500 mg PO QID #20 tablet 04/13/18 Unknown Rx Phenazopyridine [Pyridium] 200 mg PO TID #6 tab 07/13/18 Unknown Rx Sulfamethoxazole/Trimethoprim 1 each PO BID #6 tablet 07/13/18 Unknown Rx [Bactrim DS TAB] Amoxicillin [Amoxicillin TAB] 875 mg PO BID #14 tablet 10/12/18 Unknown Rx Naproxen [Naprosyn] 500 mg PO BID #14 tablet 07/18/19 Unknown Rx Ketorolac [Toradol] 10 mg PO Q6H PRN #20 tablet 09/02/20 Unknown Rx Allergies Allergy/AdvReac Type Severity Reaction Status Date / Time tramadol HCl [From [facility]] Allergy Itching Verified 10/12/18 08:43 ED Review of Systems ROS: Stated complaint: CP/ABD PAIN Other details as noted in HPI Comment: All other systems reviewed and negative ED Past Medical Hx - Past Medical History Previous Medical History?: No Additional medical history: hypoglycemia - Surgical History Past Surgical History?: Yes Hx Cholecystectomy: Yes Hx Breast Surgery: Yes (tumor removed from left breast) Additional Surgical History: right hand surgery x 3. hysterectomy - Social History Smoking Status: Current Every Day Smoker Substance Use Type: None - Medications Home Medications: Home Medications Medication Instructions Recorded Confirmed Last Taken Type Albendazole (Nf) [Albenza (Nf)] 400 mg PO BID #14 tablet 04/13/18 Unknown Rx Chlorhexidine Gluconate [Paroex] 473 ml MM BID #1 mouthwash 04/13/18 Unknown Rx Ibuprofen [Motrin] 600 mg PO Q8H PRN #30 tablet 04/13/18 Unknown Rx Metoclopramide [Reglan] 10 mg PO QID PRN #30 tab 04/13/18 Unknown Rx Penicillin V Potassium 500 mg PO QID #20 tablet 04/13/18 Unknown Rx Phenazopyridine [Pyridium] 200 mg PO TID #6 tab 07/13/18 Unknown Rx Sulfamethoxazole/Trimethoprim 1 each PO BID #6 tablet 07/13/18 Unknown Rx [Bactrim DS TAB] Amoxicillin [Amoxicillin TAB] 875 mg PO BID #14 tablet 10/12/18 Unknown Rx Naproxen [Naprosyn] 500 mg PO BID #14 tablet 07/18/19 Unknown Rx Ketorolac [Toradol] 10 mg PO Q6H PRN #20 tablet 09/02/20 Unknown Rx ED Physical Exam - General Limitations: No Limitations General appearance: alert, in no apparent distress - Head Head exam: Present: atraumatic, normocephalic. Absent: normal inspection - Eye Eye exam: Present: normal appearance, PERRL, EOMI Pupils: Present: normal accommodation - ENT ENT exam: Present: normal exam, normal orophraynx, mucous membranes moist - Neck Neck exam: Present: normal inspection - Respiratory Respiratory exam: Present: normal lung sounds bilaterally, chest wall tenderness (To the right breast no tenderness to the tail of [place] no axillary or epitrochlear lymphadenopathy). Absent: respiratory distress, wheezes, rales, accessory muscle use, decreased breath sounds - Cardiovascular Cardiovascular Exam: Present: regular rate, normal rhythm. Absent: systolic murmur, diastolic murmur, rubs, gallop - GI/Abdominal GI/Abdominal exam: Present: soft, tenderness (Ventral hernia not incarcerated), normal bowel sounds. Absent: guarding, rebound, hyperactive bowel sounds, hypoactive bowel sounds - Extremities Exam Extremities exam: Present: normal inspection, full ROM, normal capillary refill. Absent: pedal edema - Back Exam Back exam: Present: normal inspection. Absent: CVA tenderness (R), CVA tenderness (L) - Neurological Exam Neurological exam: Present: alert, oriented X3, CN II-XII intact, normal gait - Psychiatric Psychiatric exam: Present: normal affect, normal mood. Absent: anxious, flat affect, manic, suicidal ideation - Skin Skin exam: Present: warm, dry, intact, normal color. Absent: rash, cyanosis, diaphoretic, urticaria, pallor, abrasion, ecchymosis ED Course Vital Signs 09/02/20 13:04 Temperature 97.9 F Pulse Rate 68 Respiratory 20 Rate Blood Pressure 148/87 O2 Sat by Pulse 97 Oximetry Critical care attestation.: If time is entered above; I have spent that time in minutes in the direct care of this critically ill patient, excluding procedure time. ED Disposition Clinical Impression: Breast mass, right, Ventral hernia Disposition: DC-01 TO HOME OR SELFCARE Is pt being admited?: No Does the pt Need Aspirin: No Condition: Stable Instructions: Breast Self-exam (ED) Additional Instructions: Please follow-up with Dr. Topete for your breast and [place] for all of the medical concerns Prescriptions: Ketorolac [Toradol] 10 mg PO Q6H PRN #20 tablet PRN Reason: Pain Referrals: PRIMARY MD KATALINA [Primary Care Provider] - 3-5 Days KANDICE TOPETE MD [Staff Physician] - 3-5 Days [facility] [Provider Group] - 3-5 Days
== END 2020-09-02 16:33 | disposition home or self-care (01) ==
LOC: ED 12:44
DX: K43.9 Ventral hernia without obstruction or gangrene (principal); N63.10 Unspecified lump in the right breast, unspecified quadrant; F17.200 Nicotine dependence, unspecified, uncomplicated; Z79.899 Other long term (current) drug therapy; Z90.49 Acquired absence of other specified parts of digestive tract; Z90.710 Acquired absence of both cervix and uterus; Z98.890 Other specified postprocedural states; Z88.8 Allergy status to other drugs, medicaments and biological substances
CPT/HCPCS: 99282